=== PATIENT | female | born 2000 | race African-American/Black ===

== ENCOUNTER 2023-01-28 09:32 | Emergency (ER) | payer MEDICAID ==
[~2023-01-28] VITALS: Ht 177.8 cm; Wt 93.0 kg
[2023-01-28 09:36] VITALS: BP 106/70; PULSE 120; RESP 16; TEMP 100.7; O2SAT 100
[2023-01-28] MEDS ORDERED: ACETAMINOPHEN 325MG TABLET PO NR (09:45)
[2023-01-28] MEDS ORDERED: TAM75 MT (11:08)
== END 2023-01-28 13:02 | disposition home or self-care (01) ==
LOC: ER 09:55
DX: J11.1 Influenza due to unidentified influenza virus with other respiratory manifestations (principal); Z20.822 Contact with and (suspected) exposure to COVID-19; Z68.29 Body mass index [BMI] 29.0-29.9, adult
CPT/HCPCS: 99283; 87426; 81025; 87804 ×2; C9803

== ENCOUNTER 2023-08-03 15:45 | Emergency (ER) | payer MEDICAID ==
[~2023-08-03] VITALS: Ht 175.3 cm; Wt 92.5 kg
[~2023-08-03 15:45] MED LIST: TAM75 MT
[2023-08-03 16:12] VITALS: BP 139/67; PULSE 68; RESP 16; TEMP 98.2; O2SAT 100
[2023-08-03] MEDS ORDERED: ACETAMINOPHEN 325MG TABLET PO STA (16:43)
[2023-08-03] MEDS ORDERED: ACETAMINOPHEN 325MG TABLET PO NR (16:43)
[2023-08-03 17:52] LABS: BASOPHILS % 0.2 % (0.0-2.0); EOSINOPHILS % 0.2 % (0.0-5.0); HEMOGLOBIN. 12.4 g/dL (12.0-16.0); LYMPHOCYTES % 12.8 % (20.0-50.0); MEAN CORPUSCULAR HEMOGLOBIN 30.6 pg (28.0-32.0); MEAN CORPUSCULAR HGB CONC 32.6 g/dL (31.0-37.0); MEAN CORPUSCULAR VOLUME 93.9 fL (81.0-99.0); MEAN PLATELET VOLUME 8.2 fl (7.4-10.4); MONOCYTES % 5.1 % (2.0-8.0); NEUTROPHILS % 81.7 % (40.0-76.0); PLATELET 278 x1000/uL (130-400); RED BLOOD CELL COUNT 4.05 mill/uL (4.2-5.4); RED CELL DISTRIBUTION WIDTH 12.9 % (11.6-14.6); WHITE BLOOD COUNT 9.2 x1000/uL (4.5-11.0)
[2023-08-03 18:09] LABS: HCG SCREEN NEGATIVE
[2023-08-03 18:15] LABS: ALANINE AMINOTRANSFERASE 13 IU/L (10-49); ALBUMIN 4.2 g/dL (3.2-4.8); ASPARTATE AMINOTRANSFERASE 14 IU/L (<34); BILIRUBIN TOTAL 0.4 mg/dL (0.1-1.0); CALCIUM 9.5 mg/dL (8.7-10.4); CARBON DIOXIDE 31 mEq/L (21-32); CHLORIDE 104 mEq/L (98-107); CREATININE 0.8 mg/dL (0.6-1.0); GLUCOSE 92 mg/dL (70-105); POTASSIUM 4.6 mEq/L (3.5-5.1); SODIUM 139 mEq/L (136-145); UREA NITROGEN BLOOD 12 mg/dL (9-23)
== END 2023-08-03 22:21 | disposition home or self-care (01) ==
LOC: ER 15:45
DX: N83.202 Unspecified ovarian cyst, left side (principal)
CPT/HCPCS: 36415; 74176; 80053; 84703; 85025; 99284